=== PATIENT | female | born 1970 | race Caucasian/White ===

== ENCOUNTER 2017-06-03 12:48 | Emergency (ER) | payer OTHER ==
[2017-06-03 13:08] VITALS: PULSE 69; TEMP 98.2; BMI 29.9
--- NOTE | 2017-06-03 14:31 | PDOC ---
History of Present Illness - General Chief Complaint: Pain, Acute Stated Complaint: LOW ABD CRAMPS Time Seen by Provider: 06/03/17 14:29 History Source: Patient - History of Present Illness Timing/Duration: reports: changing over time Quality: reports: cramping Abdominal Pain Onset Location: reports: generalized abdomen Past History - Past Medical History Allergies/Adverse Reactions: Allergies Allergy/AdvReac Type Severity Reaction Status Date / Time No Known Allergies Allergy Verified 06/03/17 13:03 HTN: Yes - Immunization History Immunization Up to Date: Yes - Suicide/Smoking/Psychosocial Hx Smoking History: Never smoked Hx Alcohol Use: No Drug/Substance Use Hx: No Review of Systems - Review of Systems Constitutional: No: Chills, Fever Respiratory: No: Shortness of Breath Cardiac (ROS): No: Chest Pain ABD/GI: No: Diarrhea, Nausea, Vomiting : No: Dysuria *Physical Exam - Vital Signs Last Vital Signs Temp Pulse Resp BP Pulse Ox 98.2 F 69 18 159/80 100 06/03/17 13:04 06/03/17 13:04 06/03/17 13:04 06/03/17 13:04 06/03/17 13:04 - Physical Exam General Appearance: Yes: Appropriately Dressed. No: Apparent Distress HEENT: positive: Normal Voice Neck: positive: Supple Respiratory/Chest: negative: Respiratory Distress Female Pelvic Exam: positive: normal external exam, cervical os closed, normal adnexa. negative: CMT, discharge, adnexal tenderness, vaginal bleeding Gastrointestinal/Abdominal: positive: Soft. negative: Tender Musculoskeletal: negative: CVA Tenderness Extremity: positive: Normal Inspection Integumentary: positive: Dry, Warm Neurologic: positive: Fully Oriented, Alert, Normal Mood/Affect ED Treatment Course - LABORATORY CBC & Chemistry Diagram: 06/03/17 15:20 06/03/17 15:20 Medical Decision Making - Medical Decision Making 06/03/17 14:45 46-year-old female, history of HTN, fibroids, here with abdominal pain. Patient states while at work today, she developed sudden onset diffuse lower abdominal cramping during which she was lightheaded, diaphoretic and nauseous. States symptoms lasted several minutes and have significantly improved since then. No vomiting, change in bowel movements, dysuria, vaginal discharge, chest pain or shortness of breath. See exam Lower abd cramping today that has since improved Dx w/ fibroids 2 months ago Pt well mehul and stable w/ benign abd/pelvic exam Pain possibly 2/2 fibroids, no cmt/adnexal ttp to suspect PID, NT over mcburneys , unlikely uti -declines pain control -labs/ua -reassess 06/03/17 16:30 Labs unremarkable. 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 Told to take motrin as needed 06/03/17 16:32 *DC/Admit/Observation/Transfer Diagnosis at time of Disposition: Abdominal cramping - Discharge Dispostion Disposition: HOME Condition at time of disposition: Improved - Patient Instructions Additional Instructions: The cause of your lower abdominal pain could possibly be due to your fibroids as your exam and labs were all unremarkable. Take 800 mg of Motrin as needed for pain and follow-up with your OB
[2017-06-03 15:02] LABS: URINE APPEARANCE CLOUDY; URINE BILIRUBIN NEGATIVE (NEGATIVE); URINE BLOOD NEGATIVE (NEGATIVE); URINE COLOR AMBER; URINE GLUCOSE (UA) NEGATIVE (NEGATIVE); URINE KETONE TRACE (NEGATIVE); URINE NITRITE NEGATIVE (NEGATIVE); URINE PROTEIN NEGATIVE (NEGATIVE)
[2017-06-03 15:03] LABS: URINE LEUK ESTERASE 3+ (NEGATIVE)
[2017-06-03 15:09] LABS: URINE MUCUS MODERATE; URINE RBC 3 /hpf (0-3); URINE WBC 46 /hpf (3-5)
[2017-06-03 15:28] LABS: BASOPHIL 0.4 % (0-2.0); EOSINOPHIL 0.1 % (0-4.5); MCH 26.4 pg (25.7-33.7); MCHC 31.9 g/dl (32.0-36.0); MEAN CELL VOLUME 82.7 fl (80-96); MEAN PLT VOLUME 9.4 fl (7.5-11.1); NEUTROPHILS 84.4 % (42.8-82.8); PLATELET COUNT 161 K/MM3 (134-434); RDW 16.1 % (11.6-15.6); WHITE BLOOD COUNT 11.8 K/mm3 (4.0-10.0)
[2017-06-03 15:46] LABS: ANION GAP 9 (8-16); BILIRUBIN,TOTAL 0.3 mg/dL (0.2-1.0); CO2 26 mmol/L (21-32); CREATININE 0.6 mg/dL (0.55-1.02); GLUCOSE,RANDOM 103 mg/dL (74-106); SGOT/AST 19 U/L (15-37); SGPT/ALT 27 U/L (12-78); TOT PROT 7.8 g/dl (6.4-8.2)
[2017-06-03 15:47] LABS: ALK PHOS 87 U/L (45-117)
[2017-06-03 16:44] VITALS: BP 119/74
== END 2017-06-03 16:44 | disposition home or self-care (01) ==
LOC: JER 12:48
DX: R10.30 Lower abdominal pain, unspecified (principal); I10 Essential (primary) hypertension; D25.9 Leiomyoma of uterus, unspecified
CPT/HCPCS: 36415; 80053; 81003; 81015; 83690; 84703; 85025; 87086; 99282-25

== ENCOUNTER 2017-11-22 06:01 | Day surgery (SDC) | payer OTHER ==
[2017-11-20 12:35] VITALS: BMI 30.9
--- NOTE | 2017-11-22 07:16 | HP ---
Past Medical History - Primary Care Physician PCP:: González Love - Admission Chief Complaint: menometrorrhagia History of Present Illness: 47 yo f with hx of irregular periods .heavy vaginal bleeding , irregular thicken EM, admitted for hysteroscopy D&C polypectomy, rba discussed History Source: Patient Limitations to Obtaining History: No Limitations - Past Medical History Cardiovascular: Yes: HTN Heme/Onc: Yes: Anemia - Past Surgical History Hx Myomectomy: No Hx Transabdominal Cerclage: No - Smoking History Smoking history: Never smoked Have you smoked in the past 12 months: No - Alcohol/Substance Use Hx Alcohol Use: No - Social History History of Recent Travel: No Home Medications - Allergies Allergies/Adverse Reactions: Allergies Allergy/AdvReac Type Severity Reaction Status Date / Time No Known Allergies Allergy Verified 06/03/17 13:03 - Home Medications Home Medications: Ambulatory Orders Nebivolol [Bystolic -] 5 mg PO DAILY 11/20/17 Review of Systems - Review of Systems Constitutional: reports: Weakness Eyes: reports: No Symptoms HENT: reports: No Symptoms Neck: reports: No Symptoms Cardiovascular: reports: No Symptoms Respiratory: reports: No Symptoms Gastrointestinal: reports: No Symptoms Genitourinary: reports: Vaginal Bleeding Breasts: reports: No Symptoms Reported Musculoskeletal: reports: No Symptoms Integumentary: reports: No Symptoms Neurological: reports: No Symptoms Endocrine: reports: No Symptoms Hematology/Lymphatic: reports: No Symptoms Psychiatric: reports: No Symptoms 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: Vital Signs Temperature 98.5 F 11/22/17 06:28 Pulse Rate 71 11/22/17 06:28 Respiratory Rate 16 11/22/17 06:28 Blood Pressure 121/72 11/22/17 06:28 O2 Sat by Pulse Oximetry (%) 100 11/22/17 06:29 Constitutional: Yes: Well Nourished, No Distress, Calm Eyes: Yes: WNL, Conjunctiva Clear, EOM Intact HENT: Yes: WNL, Atraumatic, Normocephalic Neck: Yes: WNL, Supple, Trachea Midline Cardiovascular: Yes: WNL, Regular Rate and Rhythm Respiratory: Yes: WNL, Regular, CTA Bilaterally Gastrointestinal: Yes: WNL ...Rectal Exam: Yes: WNL Renal/: Yes: WNL Vaginal Exam: Yes: Normal Cervix: Yes: Normal Uterus: Yes: Normal Adnexa: Not Palpable: Left, Right Breast(s): Yes: WNL Musculoskeletal: Yes: WNL Extremities: Yes: WNL Edema: No Integumentary: Yes: WNL Neurological: Yes: WNL, Alert, Oriented ...Motor Strength: WNL Psychiatric: Yes: WNL, Alert, Oriented Problem List - Problem (1) Menometrorrhagia Code(s): N92.1 - EXCESSIVE AND FREQUENT MENSTRUATION WITH IRREGULAR CYCLE Assessment/Plan admit ,for hysteroscopy, D&C, polypectomy
[2017-11-22] MEDS ORDERED: MIDAZOLAM HCL 2 MG/2 ML SINGLE DOSE VIAL ONE (07:42)
[2017-11-22] MEDS ORDERED: oxyCODONE HCL 5 MG TABLET PO PRN ×2 (08:09→08:20)
[2017-11-22] MEDS ORDERED: ONDANSETRON 4 MG/2 ML VIAL IVPUSH PRN ×2 (08:09→08:20)
[2017-11-22] MEDS ORDERED: LACTATED RINGERS SOLUTION 1,000 ML IV SCH (08:15)
[2017-11-22] MEDS ORDERED: IBUPROFEN 800 MG/8 ML IJ IVPB PRN (08:20)
[2017-11-22] MEDS ORDERED: IBUPROFEN 600 MG TABLET (FP) PO PRN (08:20)
[2017-11-22] MEDS ORDERED: ELECTROLYTE-148 SOLN 1,000 ML IV SCH (08:30)
--- NOTE | 2017-11-22 08:40 | HP ---
Past Medical History - Primary Care Physician PCP:: González Love - Past Surgical History Hx Myomectomy: No Hx Transabdominal Cerclage: No - Smoking History Smoking history: Never smoked Have you smoked in the past 12 months: No - Alcohol/Substance Use Hx Alcohol Use: No - Social History History of Recent Travel: No Home Medications - Allergies Allergies/Adverse Reactions: Allergies Allergy/AdvReac Type Severity Reaction Status Date / Time No Known Allergies Allergy Verified 06/03/17 13:03 - Home Medications Home Medications: Ambulatory Orders Nebivolol [Bystolic -] 5 mg PO DAILY 11/20/17 Ibuprofen [Motrin -] 600 mg PO QID #28 tablet 11/22/17 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
[2017-11-22 08:53] VITALS: TEMP 97.5
[2017-11-22 13:15] VITALS: BP 139/79; PULSE 70
--- NOTE | 2017-11-25 15:03 | PATH ---
Surgical Pathology Report Patient Name: IFEANYI PEREIRA [facility]. Rec. #: [id number] /Age/Gender: 1970 (Age: 47) / F Account: [id number] Location: [facility] SURGICAL Taken: 11/22/2017 Received: 11/22/2017 Reported: 11/25/2017 Physicians: González Love M.D. Specimen(s) Received A: ENDOMETRIAL CURETTINGS B: ENDOMETRIAL POLYP Clinical History Anemia, menorrhagia Final Diagnosis A. ENDOMETRIAL CURETTAGE, DILATION AND CURETTAGE: FRAGMENTS OF ENDOMETRIAL POLYP, SECRETORY ENDOMETRIUM, SUPERFICIAL MYOMETRIUM, AND BENIGN ECTOCERVICAL TISSUE. B. ENDOMETRIAL POLYP, POLYPECTOMY: FRAGMENTS OF ENDOMETRIAL POLYP. Electronically Signed Thea Jacobo M.D. Gross Description A. Received in formalin labeled "endometrial curettage" is a 4.5 x 4.3 x 0.5 cm aggregate of mckeon pink soft tissue fragments. The formalin is filtered and the specimen is entirely submitted in 5 cassettes. B. Received in formalin labeled "endometrial polyp," is a 2.6 x 1.8 x 0.3 cm aggregate of mckeon, irregular to polypoid portions of soft tissue. The formalin is filtered and the specimen is entirely submitted in one cassette. 11/22/201711/22/2017
--- NOTE | 2017-11-26 11:39 | OP ---
DATE OF OPERATION: 11/22/2017 PREOPERATIVE DIAGNOSIS: Menometrorrhagia. POSTOPERATIVE DIAGNOSES: Menometrorrhagia and endometrial polyp. PROCEDURE: Hysteroscopy, dilatation and curettage, polypectomy. SURGEON: González Love MD ANESTHESIA: General. ESTIMATED BLOOD LOSS: 50 mL DESCRIPTION OF OPERATION: Patient was taken to the operating room. Under adequate general anesthesia in dorsal lithotomy position, examination under anesthesia revealed the external genitalia to be normal. Vagina was normal. No active bleeding was seen. Cervix was closed and no gross lesion. Uterus was prominent and globular. Adnexa: No masses were palpable. Then, with a weighted speculum in the vagina, anterior lip of the cervix was grasped with single-tooth tenaculum, and then, uterine cavity was sounded to 9 cm. Then, the cervix was slightly dilated, and the hysteroscope was introduced. Visualization of the endocervical canal appeared to be normal. Endometrium was irregular and thick. Both cornual regions were identified, and both tubal ostia were seen. There was no submucous myoma seen. Then, endometrial polyps were removed, and then, endometrium was curetted in an assistant boiler operator fashion. A large amount of tissue was obtained. Then, hysteroscope was re-introduced. No active bleeding was seen, and polyp was removed entirely. Patient tolerated the procedure well, left the OR in good condition. GONZÁLEZ LOVE M.D. [id number]
== END 2017-11-22 10:05 | disposition home or self-care (01) ==
LOC: JASU-SURG 06:01
PROVIDERS: ATTEND Obstetrics & Gynecology
PROC: 0UJD8ZZ Inspection of Uterus and Cervix, Via Natural or Artificial Opening Endoscopic (ICD-10-PCS; 2017-11-22)
PROC: 0UB97ZX Excision of Uterus, Via Natural or Artificial Opening, Diagnostic (ICD-10-PCS; principal; 2017-11-22 07:30)
PROC: 0UDB7ZX Extraction of Endometrium, Via Natural or Artificial Opening, Diagnostic (ICD-10-PCS; 2017-11-22 07:30)
DX: N92.1 Excessive and frequent menstruation with irregular cycle (principal); N84.0 Polyp of corpus uteri
CPT/HCPCS: 84703; 88305-TC; 94760

== ENCOUNTER 2017-12-24 12:35 | Emergency (ER) | payer OTHER ==
[2017-12-24 12:43] VITALS: BP 147/91; PULSE 72; BMI 29.9
[2017-12-24] MEDS ORDERED: ONDANSETRON 4 MG/2 ML VIAL IVPUSH ONE (12:56)
[2017-12-24] MEDS ORDERED: SODIUM CHLORIDE 0.9% 1000 ML INFUS.BAG IV ONE (12:56)
[2017-12-24] MEDS ORDERED: METOCLOPRAMIDE HCL INJECTION 10 MG/2 ML VIAL IVPB ONE (12:57)
[2017-12-24] MEDS ORDERED: MECLIZINE HCL 25 MG TABLET (FP) PO ONE (13:19)
[2017-12-24] MEDS ORDERED: MECLIZINE HCL 25 MG TABLET (FP) ONE (13:21)
[2017-12-24 13:57] LABS: ANION GAP 6 (8-16); BLOOD UREA NITROGEN 18 mg/dl (7-18); CALCIUM 8.6 mg/dl (8.4-10.2); CHLORIDE 105 mmol/L (98-107); CO2 24 mmol/L (22-28); GLUCOSE,RANDOM 116 mg/dl (74-106); SODIUM 135 mmol/L (136-145)
[2017-12-24 14:18] LABS: BASO % 0.2 % (0-2.0); EOS % 0.6 % (0-4.5); HEMATOCRIT 29.2 % (32.4-45.2); HEMOGLOBIN 9.3 GM/dL (10.7-15.3); LYMPH % 9.3 % (8-40); MCHC 31.7 g/dl (32.0-36.0); MEAN CELL VOLUME 75.8 fl (80-96); MEAN PLT VOLUME 10.8 fl (7.5-11.1); MONO % 5.8 % (3.8-10.2); NEUT % 84.1 % (42.8-82.8); PLATELET COUNT 152 K/MM3 (134-434); RBC 3.85 M/mm3 (3.60-5.2); RDW 18.6 % (11.6-15.6); WHITE BLOOD COUNT 8.7 K/mm3 (4.0-10.0)
[2017-12-24 14:30] LABS: CREATININE < 0.8 mg/dl (0.6-1.3)
[2017-12-24 14:38] LABS: HCG,QUALITATIVE URINE NEGATIVE
[2017-12-24 14:39] LABS: URINE APPEARANCE CLEAR; URINE COLOR YELLOW
[2017-12-24 14:40] LABS: URINE BILIRUBIN NEGATIVE (NEGATIVE); URINE BLOOD Trace-intact (NEGATIVE); URINE GLUCOSE (UA) NEGATIVE (NEGATIVE); URINE KETONE NEGATIVE (NEGATIVE); URINE NITRITE NEGATIVE (NEGATIVE); URINE PROTEIN NEGATIVE (NEGATIVE); URINE UROBILINOGEN 0.2 (0.2-1.0)
[2017-12-24 14:41] LABS: URINE LEUK ESTERASE NEGATIVE (NEGATIVE)
[2017-12-24 14:42] LABS: URINE RBC 0-2 /hpf (0-3); URINE WBC 0-2 (0-5)
[2017-12-24 14:43] LABS: EPI CELLS RARE /HPF; URINE MUCUS FEW
[2017-12-24 14:44] LABS: URINE BACTERIA NONE SEEN /hpf (NEGATIVE)
--- NOTE | 2017-12-24 14:58 | PDOC ---
History of Present Illness <Velma Carlos - Last Filed: 12/24/17 16:31> - History of Present Illness Initial Comments: 12/24/17 15:17 47 years old no significant past medical history presents to the emergency department with vertigo starting this morning. Patient was laying in bed stood up and began to experience room spinning and nausea laid back down symptoms seem to be worse with change in position but do not completely resolve with laying down flat. Her symptoms have persisted throughout the day they're always worse with standing and changing position but they have not completely resolved. Patient also complaining of moderate frontal headache persistent constant No weakness no numbness no recent travel no recent illness <Shaka Mckinney - Last Filed: 12/24/17 16:40> - General Chief Complaint: Lightheaded Stated Complaint: DIZZY, Time Seen by Provider: 12/24/17 12:42 Past History <Velma Carlos - Last Filed: 12/24/17 16:31> - Past Medical History Anemia: Yes COPD: No HTN: Yes Thyroid Disease: No - Immunization History Immunization Up to Date: Yes - Suicide/Smoking/Psychosocial Hx Smoking History: Never smoked Have you smoked in the past 12 months: No Information on smoking cessation initiated: No Hx Alcohol Use: No Drug/Substance Use Hx: No Substance Use Type: None <Shaka Mckinney - Last Filed: 12/24/17 16:40> - Past Medical History Allergies/Adverse Reactions: Allergies Allergy/AdvReac Type Severity Reaction Status Date / Time No Known Allergies Allergy Verified 12/24/17 12:36 Home Medications: Ambulatory Orders Nebivolol [Bystolic -] 5 mg PO DAILY 11/20/17 Meclizine HCl [Antivert -] 25 mg PO DAILY #30 tablet 12/24/17 Naproxen Sodium [Aleve] 440 mg PO PRN PRN 12/24/17 Review of Systems - Review of Systems Comments:: 12/24/17 15:17 ROS: A complete review of 10 out of 10 review of systems is taken and is negative apart from what is previously mentioned below and in the HPI. <Shaka Mckinney - Last Filed: 12/24/17 16:40> *Physical Exam - Vital Signs Last Vital Signs Temp Pulse Resp BP Pulse Ox 97.5 F L 72 20 147/91 98 12/24/17 12:36 12/24/17 12:36 12/24/17 15:19 12/24/17 12:36 12/24/17 12:36 <Velma Carlos - Last Filed: 12/24/17 16:31> - Vital Signs Last Vital Signs Temp Pulse Resp BP Pulse Ox 97.5 F L 72 20 147/91 98 12/24/17 12:36 12/24/17 12:36 12/24/17 12:36 12/24/17 12:36 12/24/17 12:36 - Physical Exam Comments: 12/24/17 15:17 Vitals: Triage Vital signs reviewed General Appearance: no acute distress, well nourished well developed, Head: Atraumatic, Eyes: Pupils equal reactive round, extraocular movement intact Ears: TM's normal bilaterally; Nose: Nares patent bilaterally;no nasal congestion Throat: Posterior oropharynx without erythema, mucous membranes moist, Neck: Supple;No Nucal rigidity Chest Wall: Nontender Cardiac: Regular rate and rhythym, no murmurs, no rubs, no gallops, Lungs: Clear to auscultation bilateral, good air movement bilaterally, Abdomen: Soft, non distended, normal bowel sounds, non tender to palpation Extremities: Full range of motion to all extremities, no cyanosis, clubbing, or edema Skin: Warm and dry, no rashes or lesions, no rash, no petechiae Neuro: AOX3; Cranial Nerves 2-12 grossly intact, Strength intact to all extremities, Sensation intact to all extremities,gait slightly unsteady, + [place] Hal[place] Psych: normal mood, normal affect <Shaka Mckinney - Last Filed: 12/24/17 16:40> ED Treatment Course - LABORATORY CBC & Chemistry Diagram: 12/24/17 13:25 12/24/17 13:25 - ADDITIONAL ORDERS Additional order review: Laboratory Results 12/24/17 12/24/17 13:25 12:56 Sodium 135 L Potassium 4.0 Chloride 105 Carbon Dioxide 24 Anion Gap 6 L BUN 18 Creatinine < 0.8 Random Glucose 116 H Calcium 8.6 Urine Color Yellow Urine Appearance Clear Urine pH 7.0 Ur Specific [place] 1.020 Urine Protein Negative Urine Glucose (UA) Negative Urine Ketones Negative Urine Blood Trace-intact H Urine Nitrite Negative Urine Bilirubin Negative Urine Urobilinogen 0.2 Ur Leukocyte Esterase Negative Urine RBC 0-2 Urine WBC 0-2 Ur Epithelial Cells Rare Urine Bacteria None seen Urine Mucus Few Urine HCG, Qual Negative 12/24/17 13:25 RBC 3.85 MCV 75.8 L MCHC 31.7 L RDW 18.6 H MPV 10.8 Neutrophils % 84.1 H D Lymphocytes % 9.3 D Monocytes % 5.8 Eosinophils % 0.6 D Basophils % 0.2 - Medications Given in the ED: ED Medications Discontinued Medications Generic Name Dose Route Start Last Admin Trade Name Carrie PRN Reason Stop Dose Admin Diphenhydramine HCl 25 mg 12/24/17 12:57 12/24/17 13:18 Benadryl Injection - IVPUSH 12/24/17 12:58 25 mg ONCE ONE Administration Lorazepam 0.5 mg 12/24/17 14:58 12/24/17 15:12 Ativan Injection - IVPUSH 12/24/17 14:59 0.5 mg ONCE ONE Administration Meclizine HCl 25 mg 12/24/17 13:19 12/24/17 13:21 Antivert - PO 12/24/17 13:20 25 mg ONCE ONE Administration Metoclopramide HCl 10 mg 12/24/17 12:57 12/24/17 13:18 Reglan Injection - IVPB 12/24/17 12:58 10 mg ONCE ONE Administration Ondansetron HCl 4 mg 12/24/17 12:56 12/24/17 15:06 Zofran Injection IVPUSH 12/24/17 12:57 Not Given ONCE ONE Sodium Chloride 1,000 ml 12/24/17 12:56 12/24/17 13:17 Normal Saline - IV 12/24/17 12:57 1,000 ml ONCE ONE Administration <Velma Carlos - Last Filed: 12/24/17 16:31> - LABORATORY CBC & Chemistry Diagram: 12/24/17 13:25 12/24/17 13:25 - ADDITIONAL ORDERS Additional order review: Laboratory Results 12/24/17 12/24/17 13:25 12:56 Sodium 135 L Potassium 4.0 Chloride 105 Carbon Dioxide 24 Anion Gap 6 L BUN 18 Creatinine < 0.8 Random Glucose 116 H Calcium 8.6 Urine Color Yellow Urine Appearance Clear Urine pH 7.0 Ur Specific [place] 1.020 Urine Protein Negative Urine Glucose (UA) Negative Urine Ketones Negative Urine Blood Trace-intact H Urine Nitrite Negative Urine Bilirubin Negative Urine Urobilinogen 0.2 Ur Leukocyte Esterase Negative Urine RBC 0-2 Urine WBC 0-2 Ur Epithelial Cells Rare Urine Bacteria None seen Urine Mucus Few Urine HCG, Qual Negative 12/24/17 13:25 RBC 3.85 MCV 75.8 L MCHC 31.7 L RDW 18.6 H MPV 10.8 Neutrophils % 84.1 H D Lymphocytes % 9.3 D Monocytes % 5.8 Eosinophils % 0.6 D Basophils % 0.2 - Medications Given in the ED: ED Medications Discontinued Medications Generic Name Dose Route Start Last Admin Trade Name Freq PRN Reason Stop Dose Admin Diphenhydramine HCl 25 mg 12/24/17 12:57 12/24/17 13:18 Benadryl Injection - IVPUSH 12/24/17 12:58 25 mg ONCE ONE Administration Meclizine HCl 25 mg 12/24/17 13:19 12/24/17 13:21 Antivert - PO 12/24/17 13:20 25 mg ONCE ONE Administration Metoclopramide HCl 10 mg 12/24/17 12:57 12/24/17 13:18 Reglan Injection - IVPB 12/24/17 12:58 10 mg ONCE ONE Administration Sodium Chloride 1,000 ml 12/24/17 12:56 12/24/17 13:17 Normal Saline - IV 12/24/17 12:57 1,000 ml ONCE ONE Administration <Shaka Mckinney - Last Filed: 12/24/17 16:40> Medical Decision Making - Medical Decision Making 12/24/17 16:[address] Hays at 4:19 pm Case discussed with Dr. Hays at 4:31 pm Documentation prepared by Velma Carlos, acting as medical charge entry specialist for Shaka Mckinney MD. <Velma Carlos - Last Filed: 12/24/17 16:31> - Medical Decision Making Reevaluation patient feels much better after fluids meclizine and small dose of Ativan no longer with vertigo able to ambulate comfortably around the emergency department. At this point given the resolution of vertigo history and examination is most consistent with benign positional vertigo as opposed to central process. I have discussed the case with her primary care provider will see the patient tomorrow in his office We will discharge the patient with a note for work prescription for meclizine and advised patient to follow up tomorrow She was also advised to return to the ED for any returning persistent symptoms or for any concerns Findings, the need for follow-up, strict return instructions discussed with patient. <Shaka Mckinney - Last Filed: 12/24/17 16:40> *DC/Admit/Observation/Transfer <Velma Carlos - Last Filed: 12/24/17 16:31> - Discharge Dispostion Admit: No <Shaka Mckinney - Last Filed: 12/24/17 16:40> Diagnosis at time of Disposition: Vertigo - Discharge Dispostion Disposition: HOME Condition at time of disposition: Improved - Referrals Referrals: Vamshi Rich MD [Staff Physician] - - Patient Instructions Printed Discharge Instructions: Vertigo, Benign Paroxysmal Positional Vertigo Additional Instructions: Rest. Drink plenty of fluids. Take meclizine as prescribed. Follow-up with tomorrow. Copy of your blood work and CAT scan. Return to the emergency department for any severe returning symptoms or persistent constant or for any concerns. - Post Discharge Activity Forms/Work/School Notes: Back to Work
[2017-12-24] MEDS ORDERED: LORazepam 2 MG/ML SDV VIAL ONE (15:07)
[2017-12-24 15:22] VITALS: TEMP 97.5
== END 2017-12-24 17:18 | disposition home or self-care (01) ==
LOC: FER 12:35
PROC: 3E0337Z Introduction of Electrolytic and Water Balance Substance into Peripheral Vein, Percutaneous Approach (ICD-10-PCS; principal; 2017-12-24)
PROC: 3E033NZ Introduction of Analgesics, Hypnotics, Sedatives into Peripheral Vein, Percutaneous Approach (ICD-10-PCS; 2017-12-24)
PROC: 3E033GC Introduction of Other Therapeutic Substance into Peripheral Vein, Percutaneous Approach (ICD-10-PCS; 2017-12-24)
DX: R42 Dizziness and giddiness (principal)
CPT/HCPCS: 36415; 70450-TC; 80048; 81003; 81015; 84703; 85025; 99282-25; J7030

== ENCOUNTER 2021-06-21 15:54 | Emergency (ER) | payer OTHER ==
[2021-06-21 16:07] VITALS: TEMP 98.8; BMI 32.9
[2021-06-21] MEDS ORDERED: LACTATED RINGERS SOLUTION 1000 ML INFUS.BAG IV ONE (17:10)
[2021-06-21 18:14] LABS: HCG,QUALITATIVE URINE Negative
[2021-06-21 18:16] LABS: EPI CELLS 8 /uL (0-25.1); HYALINE CASTS 0 /uL (0-3.1); URINE APPEARANCE CLEAR; URINE BACTERIA 347 /uL (0-1359); URINE BILIRUBIN NEGATIVE (NEGATIVE); URINE COLOR YELLOW; URINE GLUCOSE (UA) NEGATIVE (NEGATIVE); URINE KETONE NEGATIVE (NEGATIVE); URINE LEUK ESTERASE 1+ (NEGATIVE); URINE NITRITE NEGATIVE (NEGATIVE); URINE PROTEIN NEGATIVE (NEGATIVE); URINE RBC 16 /uL (0-23.9); URINE UROBILINOGEN 0.2 mg/dL (0.2-1.0); URINE WBC 48 /uL (0-25.8)
[2021-06-21 18:47] LABS: BASO % 0.4 % (0-2.0); EOS % 1.4 % (0-4.5); HEMATOCRIT 41.2 % (32.4-45.2); HEMOGLOBIN 13.7 GM/dL (10.7-15.3); LYMPH % 15.6 % (8-40); MCH 26.7 pg (25.7-33.7); MCHC 33.3 g/dl (32.0-36.0); MEAN CELL VOLUME 80.2 fl (80-96); MEAN PLT VOLUME 10.4 fl (7.5-11.1); MONO % 6.2 % (3.8-10.2); NEUT % 76.4 % (42.8-82.8); PLATELET COUNT 139 10^3/uL (134-434); RBC 5.14 M/mm3 (3.60-5.2); RDW 16.3 % (11.6-15.6)
[2021-06-21 18:53] LABS: CHLORIDE 106 mmol/L (98-107); SODIUM 138 mmol/L (136-145)
[2021-06-21 18:55] LABS: CALCIUM 9.1 mg/dL (8.5-10.1)
[2021-06-21 18:56] LABS: ALBUMIN 4.1 g/dl (3.4-5.0); ANION GAP 8 MMOL/L (8-16); BLOOD UREA NITROGEN 15.6 mg/dL (7-18); CO2 24 mmol/L (21-32); MAGNESIUM 1.9 mg/dL (1.8-2.4)
[2021-06-21 18:59] LABS: CREATININE 0.7 mg/dL (0.55-1.3); SGOT/AST 40 U/L (15-37); SGPT/ALT 61 U/L (13-61)
[2021-06-21 19:00] LABS: GLUCOSE,RANDOM 102 mg/dL (74-106)
[2021-06-21] MEDS ORDERED: NITROFURANTOIN MACROCRYSTAL 50 MG CAPSULE (FP) PO ONE (19:00)
[2021-06-21 19:01] LABS: BILIRUBIN,TOTAL 0.2 mg/dL (0.2-1); TOT PROT 8.2 g/dl (6.4-8.2)
[2021-06-21 19:02] LABS: ALK PHOS 88 U/L (45-117)
[2021-06-21] MEDS ORDERED: NITROFURANTOIN MACROCRYSTAL 50 MG CAPSULE (FP) ONE (19:06)
[2021-06-21 19:26] VITALS: BP 147/82; PULSE 89
== END 2021-06-21 19:29 | disposition home or self-care (01) ==
LOC: JER 15:54
DX: R00.2 Palpitations (principal); R06.00 Dyspnea, unspecified; N39.0 Urinary tract infection, site not specified
CPT/HCPCS: 36415; 71046-TC-FY; 80053; 81003; 82550; 83735; 84443; 84484; 84703; 85025; 87086; 93005; 93010; 99284-25; C9803; U0003; U0005

== ENCOUNTER 2022-08-25 16:39 | Emergency (ER) | payer OTHER ==
[2022-08-25 16:56] VITALS: TEMP 98.6; BMI 70.8
[2022-08-25] MEDS ORDERED: ACETAMINOPHEN 325 MG TABLET (FP) PO ONE (17:52)
[2022-08-25] MEDS ORDERED: ACETAMINOPHEN 325 MG TABLET (FP) ONE (17:55)
[2022-08-25 18:20] VITALS: BP 151/79; PULSE 68; RESP 16
== END 2022-08-25 18:38 | disposition home or self-care (01) ==
LOC: FER 16:39
DX: G44.209 Tension-type headache, unspecified, not intractable (principal); I10 Essential (primary) hypertension
CPT/HCPCS: 93005; 99283-25

== ENCOUNTER 2023-12-23 13:38 | Emergency (ER) | payer OTHER ==
[2023-12-23 13:46] VITALS: RESP 18; TEMP 98; BMI 32.3
[2023-12-23] MEDS: SODIUM CHLORIDE 1,000 ML IV ONE (15:21)
[2023-12-23 15:34] LABS: BASO % 0.3 % (0-2.0); EOS % 1.7 % (0-4.5); HEMATOCRIT 41.3 % (32.4-45.2); HEMOGLOBIN 13.4 GM/dL (10.7-15.3); LYMPH % 17.3 % (8-40); MCHC 32.4 g/dl (32.0-36.0); MEAN CELL VOLUME 86.2 fl (80-96); MEAN PLT VOLUME 10.6 fl (7.5-11.1); MONO % 9.7 % (3.8-10.2); PLATELET COUNT 123 10^3/uL (134-434); RBC 4.79 M/mm3 (3.60-5.2); RDW 13.4 % (11.6-15.6); WHITE BLOOD COUNT 8.1 K/mm3 (4.0-10.0)
[2023-12-23 16:02] LABS: POTASSIUM 4.1 mmol/L (3.5-5.1)
[2023-12-23 16:05] LABS: ALBUMIN 3.9 g/dl (3.4-5.0); BLOOD UREA NITROGEN 11.7 mg/dL (7-18)
[2023-12-23 16:08] LABS: CREATININE 0.7 mg/dL (0.55-1.3)
[2023-12-23 16:10] LABS: BILIRUBIN,TOTAL 0.3 mg/dL (0.2-1); TOT PROT 7.2 g/dl (6.4-8.2)
[2023-12-23] MEDS ORDERED: ACETAMINOPHEN INJECTION 100 ML IVPB ONE (16:10)
[2023-12-23] MEDS: ACETAMINOPHEN 1000 MG/100 ML BAG IVPB ONE (16:21)
[2023-12-23] MEDS ORDERED: KETOROLAC TROMETHAMINE 15 MG/ML VIAL ONE (16:36)
[2023-12-23] MEDS: KETOROLAC TROMETHAMINE 15 MG/ML VIAL IVPUSH ONE (16:45)
[2023-12-23 17:53] VITALS: BP 157/76; PULSE 65
== END 2023-12-23 18:06 | disposition home or self-care (01) ==
LOC: JER 13:38
PROC: 3E0333Z Introduction of Anti-inflammatory into Peripheral Vein, Percutaneous Approach (ICD-10-PCS; principal; 2023-12-23)
PROC: 3E0337Z Introduction of Electrolytic and Water Balance Substance into Peripheral Vein, Percutaneous Approach (ICD-10-PCS; 2023-12-23)
DX: I10 Essential (primary) hypertension (principal); R07.2 Precordial pain; M54.2 Cervicalgia
CPT/HCPCS: 36415; 71045-TC-FY; 80053; 84484; 85025; 93005; 93010; 99285-25